=== PATIENT | female | born 1955 | race Caucasian/White ===

== ENCOUNTER 2022-02-08 10:13 | Inpatient (IN) | payer OTHER ==
[2022-02-08] MEDS ORDERED: KETOROLAC TROMETHAMINE 30 MG/1 ML VIAL IVPUSH ONE (11:40)
[2022-02-08] MEDS ORDERED: KETOROLAC TROMETHAMINE 30 MG/1 ML VIAL ONE (11:45)
[2022-02-08 12:44] LABS: BASO % 0.4 % (0-2.0); HEMATOCRIT 42.5 % (32.4-45.2); HEMOGLOBIN 14.6 GM/dL (10.7-15.3); LYMPH % 16.7 % (8-40); MCH 30.2 pg (25.7-33.7); MCHC 34.4 g/dl (32.0-36.0); MEAN CELL VOLUME 87.9 fl (80-96); MEAN PLT VOLUME 10.3 fl (7.5-11.1); MONO % 6.2 % (3.8-10.2); NEUT % 74.7 % (42.8-82.8); PLATELET COUNT 225 10^3/uL (134-434); RBC 4.83 M/mm3 (3.60-5.2); RDW 13.8 % (11.6-15.6); WHITE BLOOD COUNT 7.5 K/mm3 (4.0-10.0)
[2022-02-08 13:04] LABS: CHLORIDE 100 mmol/L (98-107); SODIUM 140 mmol/L (136-145)
[2022-02-08 13:09] LABS: ALBUMIN 3.7 g/dl (3.4-5.0); ANION GAP 7 MMOL/L (8-16); CALCIUM 9.6 mg/dL (8.5-10.1); CO2 33 mmol/L (21-32)
[2022-02-08 13:10] LABS: BLOOD UREA NITROGEN 10.8 mg/dL (7-18); GLUCOSE,RANDOM 98 mg/dL (74-106)
[2022-02-08 13:12] LABS: CREATININE 0.8 mg/dL (0.55-1.3); SGOT/AST 74 U/L (15-37); SGPT/ALT 28 U/L (13-61)
[2022-02-08 13:13] LABS: BILIRUBIN,TOTAL 1.6 mg/dL (0.2-1); TOT PROT 7.7 g/dl (6.4-8.2)
[2022-02-08 13:14] LABS: ALK PHOS 124 U/L (45-117)
[2022-02-08] MEDS ORDERED: SODIUM CHLORIDE 0.9% 500 ML INFUS.BAG IV ONE (14:16)
[2022-02-08] MEDS ORDERED: ASPIRIN 325 MG ENTERIC COATED TABLET (FP) PO ONE (15:09)
[2022-02-08] MEDS ORDERED: ATORVASTATIN CA 80 MG TABLET (FP) PO ONE (15:11)
[2022-02-08] MEDS ORDERED: ASPIRIN 325 MG ENTERIC COATED TABLET (FP) ONE (15:19)
[2022-02-08] MEDS ORDERED: ATORVASTATIN CA 80 MG TABLET (FP) ONE (15:19)
[2022-02-08 19:44] LABS: EPI CELLS >36 /uL (0-25.1); HYALINE CASTS 4 /uL (0-3.1); PH,URINE 6.5 (5.0-8.0); URINE APPEARANCE Error; URINE BACTERIA 561 /uL (0-1359); URINE BILIRUBIN NEGATIVE (NEGATIVE); URINE COLOR YELLOW; URINE GLUCOSE (UA) NEGATIVE (NEGATIVE); URINE KETONE NEGATIVE (NEGATIVE); URINE LEUK ESTERASE 3+ (NEGATIVE); URINE NITRITE NEGATIVE (NEGATIVE); URINE PROTEIN NEGATIVE (NEGATIVE); URINE RBC 20 /uL (0-23.9); URINE UROBILINOGEN 0.2 mg/dL (0.2-1.0); URINE WBC 93 /uL (0-25.8)
[2022-02-09] MEDS ORDERED: ACETAMINOPHEN 1000 MG/100 ML BAG IVPB ONE (06:35)
[2022-02-09] MEDS ORDERED: LABETALOL HCL 5 MG/1 ML (100MG/20 ML VIAL) IVPUSH ONE (06:39)
[2022-02-09] MEDS ORDERED: ACETAMINOPHEN INJECTION 100 ML IVPB ONE (06:39)
[2022-02-09] MEDS ORDERED: LABETALOL HCL 5 MG/1 ML (100MG/20 ML VIAL) ONE (06:43)
[2022-02-09 06:59] LABS: BASO % 0.4 % (0-2.0); EOS % 4.2 % (0-4.5); HEMATOCRIT 39.2 % (32.4-45.2); HEMOGLOBIN 13.3 GM/dL (10.7-15.3); LYMPH % 25.5 % (8-40); MCH 29.5 pg (25.7-33.7); MCHC 33.9 g/dl (32.0-36.0); MEAN CELL VOLUME 86.9 fl (80-96); MEAN PLT VOLUME 10.1 fl (7.5-11.1); MONO % 6.6 % (3.8-10.2); NEUT % 63.3 % (42.8-82.8); PLATELET COUNT 191 10^3/uL (134-434); RBC 4.51 M/mm3 (3.60-5.2); RDW 13.1 % (11.6-15.6); WHITE BLOOD COUNT 6.4 K/mm3 (4.0-10.0)
[2022-02-09 07:18] LABS: ALBUMIN 3.4 g/dl (3.4-5.0); BLOOD UREA NITROGEN 10.9 mg/dL (7-18); CALCIUM 9.1 mg/dL (8.5-10.1)
[2022-02-09 07:22] LABS: CREATININE 0.6 mg/dL (0.55-1.3); PHOSPHOROUS 3.7 mg/dL (2.5-4.9)
[2022-02-09 07:23] LABS: BILIRUBIN,TOTAL 1.4 mg/dL (0.2-1); TOT PROT 6.5 g/dl (6.4-8.2)
[2022-02-09] MEDS ORDERED: ACETAMINOPHEN 325 MG TABLET (FP) PO PRN (07:26)
[2022-02-09] MEDS ORDERED: POTASSIUM CHLORIDE TABS 20 MEQ TABLET.ER (FP) PO ONE ×2 (07:27→09:57)
[2022-02-09] MEDS ORDERED: amLODIPine BESYLATE 5 MG TABLET (FP) ONE (09:56)
[2022-02-09] MEDS ORDERED: ENOXAPARIN NA (PORCINE) 40 MG/0.4 ML DISP.SYRIN SQ ONE (09:57)
[2022-02-09] MEDS ORDERED: ENOXAPARIN NA (PORCINE) 40 MG/0.4 ML DISP.SYRIN SQ SCH (10:00)
[2022-02-09] MEDS: ENOXAPARIN NA (PORCINE) 40 MG/0.4 ML DISP.SYRIN SQ SCH (10:03)
[2022-02-09] MEDS: amLODIPine BESYLATE 5 MG TABLET (FP) PO SCH (10:04)
[2022-02-09] MEDS ORDERED: REMDESIVIR 200 MG in SODIUM CHLORIDE 250 ML IVPB ONE ×2 (14:47→18:06)
[2022-02-09] MEDS ORDERED: MECLIZINE HCL 25 MG TABLET (FP) PO PRN (18:09)
[2022-02-09] MEDS ORDERED: LIDOCAINE 5% TOPICAL PATCH TP SCH (18:15)
[2022-02-09] MEDS ORDERED: SODIUM CHLORIDE 1,000 ML IV SCH (18:15)
[2022-02-09] MEDS ORDERED: ACETAMINOPHEN 325 MG TABLET (FP) ONE (20:59)
[2022-02-09] MEDS: ACETAMINOPHEN 325 MG TABLET (FP) PO SCH (21:00)
[2022-02-09] MEDS ORDERED: LIDOCAINE PATCH REMOVAL MC SCH (22:00)
[2022-02-09] MEDS: LIDOCAINE 5% TOPICAL PATCH TP SCH (22:33)
[2022-02-09] MEDS ORDERED: LIDOCAINE 5% TOPICAL PATCH ONE (22:38)
[2022-02-10] MEDS ORDERED: ACETAMINOPHEN 325 MG TABLET (FP) ONE (03:08)
[2022-02-10] MEDS: ACETAMINOPHEN 325 MG TABLET (FP) PO SCH ×4 (03:08→18:17)
[2022-02-10 03:58] VITALS: BMI 36.0
[2022-02-10] MEDS: CEFTRIAXONE 1 GM in DEXTROSE 5%-WATER - 50 ML IVPB SCH (09:14)
[2022-02-10] MEDS: ENOXAPARIN NA (PORCINE) 40 MG/0.4 ML DISP.SYRIN SQ SCH (09:14)
[2022-02-10] MEDS: amLODIPine BESYLATE 5 MG TABLET (FP) PO SCH (09:14)
[2022-02-10] MEDS ORDERED: LIDOCAINE PATCH REMOVAL MC SCH (10:00)
[2022-02-10] MEDS: DEXAMETHASONE SOD PHOSPHATE 10 MG/1 ML VIAL IVPUSH SCH (10:32)
[2022-02-10 12:07] LABS: BASO % 0.4 % (0-2.0); EOS % 4.9 % (0-4.5); HEMATOCRIT 40.1 % (32.4-45.2); HEMOGLOBIN 13.6 GM/dL (10.7-15.3); LYMPH % 24.5 % (8-40); MCH 30.1 pg (25.7-33.7); MCHC 33.8 g/dl (32.0-36.0); MEAN CELL VOLUME 88.8 fl (80-96); MEAN PLT VOLUME 10.2 fl (7.5-11.1); MONO % 6.8 % (3.8-10.2); NEUT % 63.4 % (42.8-82.8); PLATELET COUNT 209 10^3/uL (134-434); RBC 4.51 M/mm3 (3.60-5.2); RDW 13.6 % (11.6-15.6); WHITE BLOOD COUNT 6.1 K/mm3 (4.0-10.0)
[2022-02-10 12:25] LABS: CALCIUM 9.3 mg/dL (8.5-10.1)
[2022-02-10 12:26] LABS: ALBUMIN 3.6 g/dl (3.4-5.0); BLOOD UREA NITROGEN 11.4 mg/dL (7-18); MAGNESIUM 2.1 mg/dL (1.8-2.4)
[2022-02-10 12:29] LABS: CREATININE 0.6 mg/dL (0.55-1.3)
[2022-02-10 12:31] LABS: BILIRUBIN,TOTAL 0.9 mg/dL (0.2-1); TOT PROT 7.1 g/dl (6.4-8.2)
[2022-02-10] MEDS: REMDESIVIR 100 MG in SODIUM CHLORIDE 250 ML IVPB SCH (14:42)
[2022-02-10] MEDS: LIDOCAINE 5% TOPICAL PATCH TP SCH (23:10)
[2022-02-11] MEDS: ACETAMINOPHEN 325 MG TABLET (FP) PO SCH ×5 (00:05→23:16)
[2022-02-11 07:53] LABS: BASO % 0.3 % (0-2.0); EOS % 0.1 % (0-4.5); HEMATOCRIT 41.7 % (32.4-45.2); HEMOGLOBIN 14.5 GM/dL (10.7-15.3); LYMPH % 17.6 % (8-40); MCH 30.6 pg (25.7-33.7); MCHC 34.7 g/dl (32.0-36.0); MEAN PLT VOLUME 10.2 fl (7.5-11.1); MONO % 3.6 % (3.8-10.2); NEUT % 78.4 % (42.8-82.8); PLATELET COUNT 245 10^3/uL (134-434); RBC 4.74 M/mm3 (3.60-5.2); RDW 13.6 % (11.6-15.6); WHITE BLOOD COUNT 10.8 K/mm3 (4.0-10.0)
[2022-02-11 08:20] LABS: ALBUMIN 3.8 g/dl (3.4-5.0); BLOOD UREA NITROGEN 13.4 mg/dL (7-18); CALCIUM 9.5 mg/dL (8.5-10.1)
[2022-02-11 08:23] LABS: CREATININE 0.7 mg/dL (0.55-1.3)
[2022-02-11 08:25] LABS: TOT PROT 7.3 g/dl (6.4-8.2)
[2022-02-11] MEDS: ENOXAPARIN NA (PORCINE) 40 MG/0.4 ML DISP.SYRIN SQ SCH (10:13)
[2022-02-11] MEDS: CEFTRIAXONE 1 GM in DEXTROSE 5%-WATER - 50 ML IVPB SCH (10:14)
[2022-02-11] MEDS: LIDOCAINE 5% TOPICAL PATCH TP SCH (10:14)
[2022-02-11] MEDS: amLODIPine BESYLATE 5 MG TABLET (FP) PO SCH (10:14)
[2022-02-11] MEDS: DEXAMETHASONE SOD PHOSPHATE 10 MG/1 ML VIAL IVPUSH SCH (10:14)
[2022-02-11] MEDS: MECLIZINE HCL 25 MG TABLET (FP) PO SCH ×3 (11:49→23:12)
[2022-02-11] MEDS: REMDESIVIR 100 MG in SODIUM CHLORIDE 250 ML IVPB SCH (15:02)
[2022-02-11] MEDS: LIDOCAINE PATCH REMOVAL MC SCH (23:12)
[2022-02-12] MEDS: ACETAMINOPHEN 325 MG TABLET (FP) PO SCH ×3 (06:06→18:03)
[2022-02-12] MEDS: MECLIZINE HCL 25 MG TABLET (FP) PO SCH ×3 (06:07→18:03)
[2022-02-12 09:08] LABS: BASO % 0.1 % (0-2.0); EOS % 0.1 % (0-4.5); HEMATOCRIT 38.3 % (32.4-45.2); HEMOGLOBIN 13.4 GM/dL (10.7-15.3); LYMPH % 20.7 % (8-40); MCH 30.5 pg (25.7-33.7); MEAN CELL VOLUME 87.1 fl (80-96); MEAN PLT VOLUME 10.3 fl (7.5-11.1); MONO % 2.4 % (3.8-10.2); NEUT % 76.7 % (42.8-82.8); PLATELET COUNT 221 10^3/uL (134-434); RDW 13.9 % (11.6-15.6); WHITE BLOOD COUNT 10.2 K/mm3 (4.0-10.0)
[2022-02-12 09:14] LABS: CHLORIDE 108 mmol/L (98-107); SODIUM 146 mmol/L (136-145)
[2022-02-12 09:16] LABS: ALBUMIN 3.3 g/dl (3.4-5.0); BLOOD UREA NITROGEN 17.1 mg/dL (7-18); CO2 32 mmol/L (21-32); GLUCOSE,RANDOM 149 mg/dL (74-106); MAGNESIUM 1.9 mg/dL (1.8-2.4)
[2022-02-12 09:19] LABS: CREATININE 0.6 mg/dL (0.55-1.3); SGOT/AST 23 U/L (15-37); SGPT/ALT 23 U/L (13-61)
[2022-02-12 09:21] LABS: BILIRUBIN,TOTAL 0.7 mg/dL (0.2-1); TOT PROT 6.4 g/dl (6.4-8.2)
[2022-02-12 09:22] LABS: ALK PHOS 97 U/L (45-117)
[2022-02-12] MEDS: CEFTRIAXONE 1 GM in DEXTROSE 5%-WATER - 50 ML IVPB SCH (10:01)
[2022-02-12] MEDS: amLODIPine BESYLATE 5 MG TABLET (FP) PO SCH (10:02)
[2022-02-12] MEDS: LIDOCAINE 5% TOPICAL PATCH TP SCH (10:02)
[2022-02-12] MEDS: ENOXAPARIN NA (PORCINE) 40 MG/0.4 ML DISP.SYRIN SQ SCH (10:02)
[2022-02-12] MEDS: DEXAMETHASONE SOD PHOSPHATE 10 MG/1 ML VIAL IVPUSH SCH (10:02)
[2022-02-12 10:32] LABS: ANION GAP 6 MMOL/L (8-16)
[2022-02-12] MEDS ORDERED: POTASSIUM CHLORIDE TABS 20 MEQ TABLET.ER (FP) PO ONE (11:30)
[2022-02-12] MEDS ORDERED: KCL 10 MEQ IVPB 10 MEQ/100 ML INFUS.BAG IVPB SCH (11:45)
[2022-02-12] MEDS: REMDESIVIR 100 MG in SODIUM CHLORIDE 250 ML IVPB SCH (14:56)
[2022-02-12] MEDS: CEFUROXIME AXETIL 500 MG TABLET PO SCH (21:24)
[2022-02-12] MEDS: LIDOCAINE PATCH REMOVAL MC SCH (21:24)
[2022-02-13] MEDS: ACETAMINOPHEN 325 MG TABLET (FP) PO SCH ×4 (00:02→17:47)
[2022-02-13] MEDS: MECLIZINE HCL 25 MG TABLET (FP) PO SCH ×4 (00:02→17:50)
[2022-02-13 06:34] VITALS: RESP 18
[2022-02-13 08:34] LABS: BASO % 0.3 % (0-2.0); EOS % 0.1 % (0-4.5); HEMATOCRIT 40.4 % (32.4-45.2); HEMOGLOBIN 13.6 GM/dL (10.7-15.3); LYMPH % 25.5 % (8-40); MCH 29.7 pg (25.7-33.7); MCHC 33.6 g/dl (32.0-36.0); MEAN CELL VOLUME 88.4 fl (80-96); MEAN PLT VOLUME 10.9 fl (7.5-11.1); NEUT % 70.1 % (42.8-82.8); PLATELET COUNT 222 10^3/uL (134-434); RBC 4.57 M/mm3 (3.60-5.2); RDW 13.8 % (11.6-15.6); WHITE BLOOD COUNT 9.6 K/mm3 (4.0-10.0)
[2022-02-13 08:52] LABS: CHLORIDE 108 mmol/L (98-107); SODIUM 145 mmol/L (136-145)
[2022-02-13 09:01] LABS: CALCIUM 8.7 mg/dL (8.5-10.1); GLUCOSE,RANDOM 76 mg/dL (74-106)
[2022-02-13 09:02] LABS: ALBUMIN 3.4 g/dl (3.4-5.0)
[2022-02-13] MEDS: DEXAMETHASONE SOD PHOSPHATE 10 MG/1 ML VIAL IVPUSH SCH (09:03)
[2022-02-13] MEDS: ENOXAPARIN NA (PORCINE) 40 MG/0.4 ML DISP.SYRIN SQ SCH (09:03)
[2022-02-13] MEDS: LIDOCAINE 5% TOPICAL PATCH TP SCH (09:03)
[2022-02-13] MEDS: amLODIPine BESYLATE 5 MG TABLET (FP) PO SCH (09:03)
[2022-02-13 09:04] LABS: SGPT/ALT 28 U/L (13-61)
[2022-02-13 09:05] LABS: ANION GAP 8 MMOL/L (8-16); CO2 30 mmol/L (21-32); CREATININE 0.6 mg/dL (0.55-1.3); MAGNESIUM 2.1 mg/dL (1.8-2.4)
[2022-02-13 09:06] LABS: BILIRUBIN,TOTAL 0.7 mg/dL (0.2-1)
[2022-02-13] MEDS: CEFUROXIME AXETIL 500 MG TABLET PO SCH (09:06)
[2022-02-13 09:07] LABS: ALK PHOS 96 U/L (45-117)
[2022-02-13 09:08] LABS: SGOT/AST 26 U/L (15-37)
[2022-02-13 09:10] LABS: TOT PROT 6.5 g/dl (6.4-8.2)
[2022-02-13 14:39] VITALS: PULSE 65
[2022-02-13] MEDS: REMDESIVIR 100 MG in SODIUM CHLORIDE 250 ML IVPB SCH (15:01)
[2022-02-13 18:30] VITALS: BP 119/66; TEMP 98.1
== END 2022-02-13 20:36 | disposition home health service (06) | DRG 178 ==
LOC: JER 10:13 → JERBED 11:37 → OBSVTOIN 15:09 → INTOOBSV 15:09 → J4S 02-10 03:23 → OBSVTOIN 02-12 15:00
PROVIDERS: ADMIT Internal Medicine; ATTEND Nurse Practitioner Acute Care
PROC: XW033E5 Introduction of Remdesivir Anti-infective into Peripheral Vein, Percutaneous Approach, New Technology Group 5 (ICD-10-PCS; principal; 2022-02-12)
DX: U07.1 COVID-19 (principal); N39.0 Urinary tract infection, site not specified; I10 Essential (primary) hypertension; E78.5 Hyperlipidemia, unspecified
CPT/HCPCS: 0241U-QW; 36415; 70450-TC; 71046-TC-FY; 71101-TC-LT-FY; 80053; 81003; 82550; 82553; 82962; 83036; 83735; 84100; 84132; 84443; 84484; 85025; 86140; 87086; 93005; 93010; 93306-TC; 93880-TC; 94010; 97116-GP; 97161-GP; 99285-25; C9399; G0378; J1100

== ENCOUNTER 2022-02-17 07:20 | Observation (INO) | payer OTHER ==
[2022-02-17 08:01] VITALS: BMI 35.4
[2022-02-17] MEDS ORDERED: MAG HYDROX/AL HYDROX/SIMETH 30 ML UNIT-DOSE CUP PO ONE (08:39)
[2022-02-17] MEDS ORDERED: FAMOTIDINE 20 MG/50 ML IVPB 20 MG/50 ML MG IVPB ONE ×2 (08:39→09:22)
[2022-02-17] MEDS ORDERED: ONDANSETRON 4 MG/2 ML VIAL IVPB ONE (08:39)
[2022-02-17] MEDS ORDERED: METOCLOPRAMIDE HCL INJECTION 10 MG/2 ML VIAL IVPB ONE (08:40)
[2022-02-17 09:20] LABS: VENOUS BASE EXCESS 9.3 mmol/L (-2-2); VENOUS O2 SATURATION 70.1 % (70-80); VENOUS PCO2 48.4 mmHg (38-52); VENOUS PH 7.473 (7.310-7.410)
[2022-02-17] MEDS ORDERED: METOCLOPRAMIDE HCL INJECTION 10 MG/2 ML VIAL ONE (09:21)
[2022-02-17] MEDS ORDERED: MAG HYDROX/AL HYDROX/SIMETH 30 ML UNIT-DOSE CUP ONE (09:21)
[2022-02-17] MEDS ORDERED: SODIUM CHLORIDE 0.9% 500 ML INFUS.BAG IV ONE (09:21)
[2022-02-17] MEDS ORDERED: ACETAMINOPHEN 1000 MG/100 ML BAG IVPB ONE (09:21)
[2022-02-17] MEDS ORDERED: ACETAMINOPHEN INJECTION 100 ML IVPB ONE (09:22)
[2022-02-17 09:25] LABS: BASO % 0.2 % (0-2.0); EOS % 0.7 % (0-4.5); HEMATOCRIT 47.3 % (32.4-45.2); HEMOGLOBIN 16.1 GM/dL (10.7-15.3); LYMPH % 15.6 % (8-40); MCH 30.1 pg (25.7-33.7); MCHC 33.9 g/dl (32.0-36.0); MEAN CELL VOLUME 88.6 fl (80-96); MEAN PLT VOLUME 10.5 fl (7.5-11.1); MONO % 4.2 % (3.8-10.2); NEUT % 79.3 % (42.8-82.8); PLATELET COUNT 257 10^3/uL (134-434); RBC 5.34 M/mm3 (3.60-5.2); RDW 13.9 % (11.6-15.6); WHITE BLOOD COUNT 9.7 K/mm3 (4.0-10.0)
[2022-02-17 09:30] LABS: INR 1.17 (0.83-1.09); PROTHROMBIN TIME (PATIENT) 13.5 SEC (9.7-13.0)
[2022-02-17 09:33] LABS: ACTIVATED PTT 39.3 SECONDS (25.2-36.5)
[2022-02-17 09:54] LABS: CALCIUM 9.6 mg/dL (8.5-10.1)
[2022-02-17 09:55] LABS: BLOOD UREA NITROGEN 13.8 mg/dL (7-18)
[2022-02-17 09:56] LABS: LACTIC ACID 2.7 mmol/L (0.4-2.0)
[2022-02-17 09:58] LABS: CREATININE 0.8 mg/dL (0.55-1.3)
[2022-02-17 09:59] LABS: BILIRUBIN,TOTAL 2.5 mg/dL (0.2-1); TOT PROT 7.7 g/dl (6.4-8.2)
[2022-02-17 10:00] LABS: EPI CELLS 18 /uL (0-25.1); HYALINE CASTS 0 /uL (0-3.1); PH,URINE 8.5 (5.0-8.0); URINE APPEARANCE CLEAR; URINE BACTERIA 57 /uL (0-1359); URINE BILIRUBIN NEGATIVE (NEGATIVE); URINE COLOR YELLOW; URINE GLUCOSE (UA) NEGATIVE (NEGATIVE); URINE KETONE NEGATIVE (NEGATIVE); URINE LEUK ESTERASE 2+ (NEGATIVE); URINE NITRITE NEGATIVE (NEGATIVE); URINE PROTEIN NEGATIVE (NEGATIVE); URINE RBC 6 /uL (0-23.9); URINE UROBILINOGEN 0.2 mg/dL (0.2-1.0); URINE WBC 32 /uL (0-25.8)
[2022-02-17 11:16] LABS: BLOOD UREA NITROGEN 13.7 mg/dL (7-18); CALCIUM 9.4 mg/dL (8.5-10.1); MAGNESIUM 2.4 mg/dL (1.8-2.4)
[2022-02-17 11:20] LABS: CREATININE 0.7 mg/dL (0.55-1.3)
[2022-02-17] MEDS ORDERED: CEFTRIAXONE 1 GM in DEXTROSE 5%-WATER - 100 ML IVPB ONE (12:29)
[2022-02-17] MEDS ORDERED: SODIUM CHLORIDE 0.9% 1000 ML INFUS.BAG IV ONE (12:29)
[2022-02-17] MEDS ORDERED: CEFTRIAXONE 1 GM/50 ML BAG ONE (12:41)
[2022-02-17] MEDS ORDERED: ALBUTEROL SO4 HFA INHALER IH PRN (17:21)
[2022-02-17] MEDS ORDERED: MECLIZINE HCL 25 MG TABLET (FP) PO PRN (17:21)
[2022-02-17 18:18] VITALS: RESP 18
[2022-02-17] MEDS: ATORVASTATIN CA 10 MG TABLET (FP) PO SCH (22:16)
[2022-02-17] MEDS: HEPARIN NA (PORCINE) 5,000 UNITS/ML 1ML VIAL SQ SCH (22:16)
[2022-02-17] MEDS: PRAMIPEXOLE DIHYDROCHLORIDE 0.5 MG TABLET PO SCH (22:16)
[2022-02-18] MEDS: PRAMIPEXOLE DIHYDROCHLORIDE 0.5 MG TABLET PO SCH ×3 (06:54→21:33)
[2022-02-18 09:18] LABS: BASO % 0.3 % (0-2.0); EOS % 4.2 % (0-4.5); HEMATOCRIT 43.3 % (32.4-45.2); HEMOGLOBIN 14.6 GM/dL (10.7-15.3); LYMPH % 31.3 % (8-40); MCH 30.3 pg (25.7-33.7); MCHC 33.7 g/dl (32.0-36.0); MEAN CELL VOLUME 89.8 fl (80-96); MEAN PLT VOLUME 10.2 fl (7.5-11.1); MONO % 6.4 % (3.8-10.2); NEUT % 57.8 % (42.8-82.8); PLATELET COUNT 220 10^3/uL (134-434); RBC 4.82 M/mm3 (3.60-5.2); WHITE BLOOD COUNT 7.6 K/mm3 (4.0-10.0)
[2022-02-18 09:52] LABS: BLOOD UREA NITROGEN 12.4 mg/dL (7-18); CALCIUM 8.8 mg/dL (8.5-10.1)
[2022-02-18 09:54] LABS: ALBUMIN 3.6 g/dl (3.4-5.0)
[2022-02-18 09:55] LABS: CREATININE 0.7 mg/dL (0.55-1.3)
[2022-02-18] MEDS ORDERED: CEFTRIAXONE 1 GM in DEXTROSE 5%-WATER - 50 ML IVPB SCH (10:00)
[2022-02-18] MEDS: amLODIPine BESYLATE 5 MG TABLET (FP) PO SCH (10:12)
[2022-02-18] MEDS: HEPARIN NA (PORCINE) 5,000 UNITS/ML 1ML VIAL SQ SCH ×2 (10:12→21:28)
[2022-02-18] MEDS: FAMOTIDINE 20 MG TABLET PO SCH (10:12)
[2022-02-18] MEDS ORDERED: SODIUM CHLORIDE 0.9% 500 ML INFUS.BAG IV ONE (10:49)
[2022-02-18] MEDS: ACETAMINOPHEN 325 MG TABLET (FP) PO PRN (21:28)
[2022-02-18] MEDS: ATORVASTATIN CA 10 MG TABLET (FP) PO SCH (21:28)
[2022-02-19] MEDS: PRAMIPEXOLE DIHYDROCHLORIDE 0.5 MG TABLET PO SCH ×2 (06:12→14:04)
[2022-02-19] MEDS: FAMOTIDINE 20 MG TABLET PO SCH (09:35)
[2022-02-19] MEDS: HEPARIN NA (PORCINE) 5,000 UNITS/ML 1ML VIAL SQ SCH (09:35)
[2022-02-19] MEDS: amLODIPine BESYLATE 5 MG TABLET (FP) PO SCH (09:35)
[2022-02-19] MEDS ORDERED: CEPHALEXIN MONOHYDRATE 500 MG CAPSULE (UD) PO SCH (10:00)
[2022-02-19] MEDS: ACETAMINOPHEN 325 MG TABLET (FP) PO PRN (14:04)
[2022-02-19 14:43] VITALS: BP 116/76; PULSE 73; TEMP 98.5
== END 2022-02-19 17:48 | disposition home health service (06) ==
LOC: JER 07:20 → OBSVTOIN 16:38 → UNDOADMOB 16:38 → INTOOBSV 16:38 → JERBED 16:38 → UNDOADMOB 17:28 → INTOOBSV 17:28 → OBSVTOIN 17:28 → JERBED 18:37 → J6S 18:37 → JERBED 18:37 → J6S 02-18 08:29 → JERBED 02-18 08:29
PROVIDERS: ADMIT Internal Medicine; ATTEND Nurse Practitioner Acute Care
PROC: 3E033NZ Introduction of Analgesics, Hypnotics, Sedatives into Peripheral Vein, Percutaneous Approach (ICD-10-PCS; principal; 2022-02-18)
PROC: 3E03329 Introduction of Other Anti-infective into Peripheral Vein, Percutaneous Approach (ICD-10-PCS; 2022-02-18)
PROC: 3E023GC Introduction of Other Therapeutic Substance into Muscle, Percutaneous Approach (ICD-10-PCS; 2022-02-18)
PROC: 3E0337Z Introduction of Electrolytic and Water Balance Substance into Peripheral Vein, Percutaneous Approach (ICD-10-PCS; 2022-02-18)
DX: N39.0 Urinary tract infection, site not specified (principal); G44.89 Other headache syndrome; K21.9 Gastro-esophageal reflux disease without esophagitis; I10 Essential (primary) hypertension; R20.0 Anesthesia of skin; R20.2 Paresthesia of skin; R26.81 Unsteadiness on feet; R11.2 Nausea with vomiting, unspecified; Z91.048 Other nonmedicinal substance allergy status; E66.8 Other obesity; Z68.35 Body mass index [BMI] 35.0-35.9, adult; Z91.199 Patient's noncompliance with other medical treatment and regimen due to unspecified reason
CPT/HCPCS: 0241U-QW; 36415; 71045-TC-FY; 74176-TC; 80048; 80053; 81003; 82803; 83605; 83690; 83735; 84484; 85025; 85610; 85730; 87086; 93005; 93010; 96365; 96366; 96367; 96372; 96375; 99285-25; G0378; J1644

== ENCOUNTER 2022-03-08 12:16 | Emergency (ER) | payer OTHER ==
[2022-03-08 13:13] VITALS: BP 107/63; PULSE 74; RESP 18; TEMP 98.3; BMI 35.6
== END 2022-03-08 17:14 | disposition home or self-care (01) ==
LOC: JERFT 12:16
DX: S93.401A Sprain of unspecified ligament of right ankle, initial encounter (principal); X50.0XXA Overexertion from strenuous movement or load, initial encounter
CPT/HCPCS: 73610-TC-RT-FY; 73630-TC-RT-FY; 99283-25